=== PATIENT | female | born 1960 | race Caucasian/White ===

== ENCOUNTER 2020-11-03 09:12 | Outpatient (CLI) | payer OTHER, SELFPAY ==
--- NOTE | ~2020-11-03 | MM_ITS ---
EXAMINATION: MM screening corin BI w liza HISTORY: Screening TECHNIQUE: Craniocaudal and mediolateral oblique 3-D tomosynthesis images were obtained and synthetic 2-D images were generated. CAD analysis was submitted and interpreted. COMPARISON: Comparison to multiple prior studies sequentially, with oldest reviewed study dated 06/30. BREAST PARENCHYMAL COMPOSITION: There are scattered areas of fibroglandular density. FINDINGS: There is no evidence of suspicious mass, calcification, or architectural distortion to sugg est malignancy in either breast. There has been no suspicious interval change. IMPRESSION: 1. No mammographic evidence of malignancy. 2. Recommend routine screening mammography in one year. BI-RADS Category 1: Negative Reviewed, dictated and finalized at location A.
== END 2020-11-03 09:13 | disposition home or self-care (01) ==
LOC: ANHIMG 09:15
PROVIDERS: PCP Family Medicine; Visit Provider Family Medicine
DX: Z12.31 Encounter for screening mammogram for malignant neoplasm of breast (principal)
CPT/HCPCS: 77063; 77067

== ENCOUNTER → 2021-08-29 15:55 | Outpatient (CLI) | payer OTHER, SELFPAY ==
--- NOTE | ~2021-08-29 | XR_ITS ---
XR lumbar spine 6V w bending DATE: 08/29/2021 16:49 INDICATION: Back pain TECHNIQUE: AP, lateral, bilateral oblique views. Coned lateral lumbosacral view. Flexion and extensio n lateral standing views. COMPARISON: None FINDINGS: There is severe degenerative disc disease with severe loss of disc space, eburnation, spurr ing, vacuum phenomenon at and minimal retrolisthesis at L4-5, stable in flexion, extension and neutra l. There is moderate degenerative disc disease at L1-2, L2-3 and L5-S1, mild degenerative disc disease a t L3-4. No fracture, bone destruction or spondylolisthesis. The lumbar pedicles are intact. There is mild compensatory dextroscoliosis of the lumbar spine. The sacroiliac joints are unremarkable. Surgical clips, right upper quadrant, likely due to cholecystectomy. IMPRESSION: Severe degenerative disc disease and minimal retrolisthesis at L4-5 Mild to moderate degenerative disc disease at the remaining lumbar and lumbosacral interspaces Reviewed, dictated and finalized at location A. IMPRESSION: Severe degenerative disc disease and minimal retrolisthesis at L4-5 Mild to moderate degenerative disc disease at the remaining lumbar and lumbosac ral interspaces
--- NOTE | ~2021-08-29 | XR_ITS ---
XR thoracic spine 3V DATE: 08/29/2021 16:49 INDICATION: Back pain TECHNIQUE: AP, lateral, swimmer standing views COMPARISON: None FINDINGS: There is degenerative disc disease at C5-6 and C6-7. There is mild levoscoliosis of the mid and lower thoracic spine. There is degenerative spurring, most prominent in the mid and lower thoracic area. No fracture or bone destruction is evident. The thoracic pedicles are intact. No paraspinal soft tiss ue thickening. IMPRESSION: Degenerative spurring and mild scoliosis Reviewed, dictated and finalized at location A.
== END ==
PROVIDERS: PCP Family Medicine; Visit Provider Family Medicine
DX: M47.9 Spondylosis, unspecified (principal); M54.15 Radiculopathy, thoracolumbar region; M62.830 Muscle spasm of back; M51.36 Other intervertebral disc degeneration, lumbar region; M41.9 Scoliosis, unspecified
CPT/HCPCS: 72072; 72114

== ENCOUNTER → 2021-09-25 12:56 | Outpatient (CLI) | payer OTHER, SELFPAY ==
--- NOTE | ~2021-09-25 | MR_ITS ---
EXAMINATION: MR thoracic spine wo con DATE: 09/25/2021 13:32 INDICATION: Other intervertebral disc degeneration, thoracic spine. Mid to low back pain. TECHNIQUE: Magnetic resonance imaging (MRI) of the thoracic spine was performed without intravenous c ontrast. Sagittal localizer T1-weighted FSE of the cervical spine was obtained. Thoracic spine sequen lyn included sagittal T2-weighted FSE, sagittal T1-weighted FSE, sagittal T2-weighted FS FSE, and axi al T2-weighted FSE. COMPARISON: Abdomen radiographs 08/29/2021 FINDINGS: There is 6 degrees levocurvature of thoracic spine. There is kyphosis of thoracic spine. Th ere is mild chronic anterior wedging of T4-T11 vertebral bodies. There is moderately decreased disc h eight at T10-T11 and T11-T12. There is mildly decreased disc height at multiple levels. There is mult ilevel facet joint osteoarthritis, moderate to severe in upper thoracic spine. At T2-T3, the disc is bulging with mild central canal stenosis and ventral indentation of the spinal cord. At T7-T8, there is a right central extrusion with mild central canal stenosis and ventral indentation of the spinal c ord. At T9-T10, the disc is bulging with mild central canal stenosis. At T10-T11, the disc is bulging with superimposed right central extrusion with mild central canal stenosis and ventral indentation o f the spinal cord. On the right, there is mild neural foraminal stenosis from T1-T2 through T5-T6 and at T10-T11. On the left, there is mild foraminal stenosis from T1-T2 through T3-T4. The spinal cord signal intensity is normal. The conus medullaris is at L1. IMPRESSION: 1. Moderate thoracic spondylosis. 2. Thoracic kyphosis. Reviewed, dictated and finalized at location A.
--- NOTE | ~2021-09-25 | MR_ITS ---
EXAMINATION: MR lumbar spine wo con DATE: 09/25/2021 13:39 INDICATION: Mid to low back pain. TECHNIQUE: Magnetic resonance imaging (MRI) of the lumbar spine was performed without intravenous con trast. Sequences included sagittal T2-weighted FSE, sagittal T2-weighted FS FSE, sagittal T1-weighted FSE, and axial T2-weighted FSE. COMPARISON: Lumbar spine radiographs 08/29/2021 FINDINGS: There is 6 degrees dextrocurvature of lumbar spine. There is 3 mm retrolisthesis of L4 on L 5. Vertebral body heights are normal. There is mildly decreased disc height at L2-L3, severely decrea sed disc height at L4-L5, and mildly decreased disc height at L5-S1. The distal spinal cord signal in tensity is normal. The conus medullaris is at T12-L1. The following disc levels are specifically disc ussed: L1-L2: There is a right central protrusion. There is no facet joint osteoarthritis. There is no neura l foraminal stenosis. There is mild central canal stenosis. L2-L3: The disc is bulging. There is mild bilateral facet joint osteoarthritis. There is mild bilater al neural foraminal stenosis. There is mild central canal stenosis. L3-L4: The disc is bulging. There is severe bilateral facet joint osteoarthritis. There is mild bilat eral neural foraminal stenosis. There is mild central canal stenosis. L4-L5: The disc is bulging and has an annular fissure There is moderate bilateral facet joint osteoar thritis. There is moderate bilateral neural foraminal stenosis. There is mild central canal stenosis. L5-S1: There is a right foraminal and subarticular zone protrusion with annular fissure. There is sev ere right and moderate left facet joint osteoarthritis. There is moderate right neural foraminal sten osis. There is mild central canal stenosis. IMPRESSION: 1. Severe lumbar spondylosis. Reviewed, dictated and finalized at location A.
== END ==
PROVIDERS: PCP Family Medicine; Visit Provider Nurse Practitioner Family
DX: M51.34 Other intervertebral disc degeneration, thoracic region (principal); M51.36 Other intervertebral disc degeneration, lumbar region; M47.894 Other spondylosis, thoracic region; M47.896 Other spondylosis, lumbar region
CPT/HCPCS: 72146; 72148

== ENCOUNTER → 2022-11-01 08:10 | Outpatient (CLI) | payer OTHER, SELFPAY ==
--- NOTE | ~2022-11-01 | XR_ITS ---
AP and lateral views of the bilateral hips Clinical history: Pain Findings: No acute fracture or dislocation is seen. Osseous alignment is anatomic. Bilateral hip and SI joint spaces are preserved. Soft tissues are unremarkable. Impression: No significant abnormality is seen. Reviewed, dictated and finalized at location . Impression: No significant abnormality is seen.
== END ==
PROVIDERS: PCP Family Medicine; Visit Provider Anesthesiology Pain Medicine
DX: M16.9 Osteoarthritis of hip, unspecified (principal)
CPT/HCPCS: 73521

== ENCOUNTER → 2023-03-04 07:54 | Outpatient (CLI) | payer OTHER, SELFPAY ==
--- NOTE | ~2023-03-04 | MR_ITS ---
EXAMINATION: MR lumbar spine wo con DATE: 03/04/2023 08:20 INDICATION: Low back pain TECHNIQUE: Magnetic resonance imaging (MRI) of the lumbar spine was performed without intravenous con trast. Sequences included sagittal T2-weighted FSE, sagittal T2-weighted FS FSE, sagittal T1-weighted FSE, and axial T2-weighted FSE. COMPARISON: None FINDINGS: 2 mm retrolisthesis L4 on L5. Vertebral body heights are normal. Severe disc height loss with associa izaiah fibrofatty degenerative endplate changes at L4-L5. Mild disc height loss at L2-L3 and L5-S1. Mini mal disc height loss at L3-L4. Marrow signal is otherwise unremarkable. The conus medullaris terminat es at L1. There is normal signal in the caudal spinal cord. Paravertebral soft tissues are unremarkab le. The following disc levels are specifically discussed: T11-T12: Annular fissure and right paracentral disc extrusion which flattens the right ventral surfac e of the cord. There is mild right facet osteoarthritis. There is mild right neural foraminal stenosi s. There is mild central canal stenosis. T12-L1: The disc does not extend beyond the endplate margin. There is mild bilateral facet joint oste oarthritis. There is no neural foraminal stenosis. There is no central canal stenosis. L1-L2: Disc is mildly bulging with small right paracentral disc protrusion. There is mild bilateral f acet joint osteoarthritis. There is no neural foraminal stenosis. There is mild central canal stenosi s. L2-L3: Disc is bulging with annular fissure and increasing small to moderate-sized central to left pa racentral disc extrusion with disc material extending a few millimeters cephalad and caudal to the le gus of the endplates. There is mild left and moderate right facet joint osteoarthritis. There is mild bilateral neural foraminal stenosis. There is mild central canal stenosis. L3-L4: Disc is bulging. There is severe bilateral facet joint osteoarthritis. There is mild bilateral neural foraminal stenosis. There is mild central canal stenosis. L4-L5: Annular fissure and broad-based disc extrusion extending from foraminal zone to foraminal zone disc material extending 3 mm beyond the allred of the endplate margins. There is moderate bilateral f acet joint osteoarthritis. There is moderate bilateral neural foraminal stenosis. There is mild centr al canal stenosis. L5-S1: Disc is minimally bulging with annular fissure and small right paracentral disc protrusion. Th ere is severe right and moderate left facet joint osteoarthritis. There is moderate right neural fora librado stenosis. There is mild central canal stenosis. IMPRESSION: 1. No significant interval change in severe lower lumbar predominant spondylosis. Reviewed, dictated and finalized at location A. IMPRESSION: 1. No significant interval change in severe lower lumbar predominant spondylosi s.
== END ==
PROVIDERS: PCP Family Medicine; Visit Provider Neurological Surgery
DX: M54.50 Low back pain, unspecified (principal)
CPT/HCPCS: 72148

== ENCOUNTER 2023-05-03 08:44 | Outpatient (CLI) | payer OTHER, SELFPAY ==
--- NOTE | 2023-05-03 08:47 | EST_ITS ---
Patient Info Name: Randi Bains Age: 62 years : 1960 Gender: Female Ht: 67 in Wt: 170 lbs BSA: 1.92 m2 HR: 70 bpm BP: 143 / 93 mmHg Heart Rhythm: Sinus Rhythm Exam Date: 05/03/2023 9:00 AM Exam Location: [facility] Patient Status: Outpatient Admit Date: 05/03/2023 Staff Ordering Physician: Joann Hanna Attending Provider: Joann Hanna Exercise Technologist: Radha Christensen CT Exercise Physician: Gene Ballesteros DO Exam Type: CA stress test treadmill Study Info Indications R06.02 - Shortness of breath A treadmill exercise stress test was performed. Summary 1. 1. Negative Sunny exercise stress test for ischemic ST changes by ECG criteria. 2. 2. Good functional capacity, achieving 8.9 METs of workload. 3. 3. Baseline hypertension with hypertensive response to exercise. 4. 4. Appropriate HR response to exercise. 5. 5. Appropriate HR recovery at 1 minute post exercise. 6. 6. No imaging with stress testing. 7. 7. Patient informed of the above results. Protocol: Sunny Stress ECG Details Stage: REST Duration (min): 3 min : 44 sec Speed (mph): 0.0 Grade (%): 0 HR (bpm): 71 SBP (mmHg): 143 DBP (mmHg): 99 METS: --- Stage: REST Duration (min): 6 min : 26 sec Speed (mph): 0.0 Grade (%): 0 HR (bpm): 72 SBP (mmHg): 143 DBP (mmHg): 99 METS: --- Stage: STAGE 1 Duration (min): 1 min : 0 sec Speed (mph): 1.7 Grade (%): 10 HR (bpm): 82 SBP (mmHg): 143 DBP (mmHg): 99 METS: --- Stage: STAGE 1 Duration (min): 2 min : 0 sec Speed (mph): 1.7 Grade (%): 10 HR (bpm): 98 SBP (mmHg): 143 DBP (mmHg): 99 METS: --- Stage: STAGE 1 Duration (min): 3 min : 0 sec Speed (mph): 1.7 Grade (%): 10 HR (bpm): 104 SBP (mmHg): 193 DBP (mmHg): 104 METS: --- Stage: STAGE 2 Duration (min): 1 min : 0 sec Speed (mph): 2.5 Grade (%): 12 HR (bpm): 104 SBP (mmHg): 202 DBP (mmHg): 109 METS: --- Stage: STAGE 2 Duration (min): 2 min : 0 sec Speed (mph): 2.5 Grade (%): 12 HR (bpm): 110 SBP (mmHg): 213 DBP (mmHg): 107 METS: --- Stage: STAGE 2 Duration (min): 3 min : 0 sec Speed (mph): 2.5 Grade (%): 12 HR (bpm): 116 SBP (mmHg): 213 DBP (mmHg): 107 METS: --- Stage: STAGE 3 Duration (min): 1 min : 0 sec Speed (mph): 3.4 Grade (%): 14 HR (bpm): 120 SBP (mmHg): 213 DBP (mmHg): 107 METS: --- Stage: STAGE 3 Duration (min): 1 min : 2 sec Speed (mph): 3.4 Grade (%): 14 HR (bpm): 120 SBP (mmHg): 213 DBP (mmHg): 107 METS: --- Stage: RECOVERY Duration (min): 0 min : 57 sec Speed (mph): 0.0 Grade (%): 0 HR (bpm): 125 SBP (mmHg): 213 DBP (mmHg): 107 METS: --- Stage: RECOVERY Duration (min): 1 min : 57 sec Speed (mph): 0.0 Grade (%): 0 HR (bpm): 110 SBP (mmHg): 237 DBP (mmHg): 104 METS: --- Stage: RECOVERY Duration (min): 2 min : 58 sec Speed (mph): 0.
== END 2023-05-03 08:45 | disposition home or self-care (01) ==
PROVIDERS: PCP Family Medicine; Visit Provider Nurse Practitioner Family
DX: R06.02 Shortness of breath (principal)
CPT/HCPCS: 93017

== ENCOUNTER 2023-08-05 15:20 | Outpatient (CLI) | payer OTHER, SELFPAY ==
--- NOTE | ~2023-08-05 | MM_ITS ---
EXAMINATION: MM screening corin BI w liza HISTORY: Screening mammogram TECHNIQUE: Craniocaudal and mediolateral oblique 3-D tomosynthesis images were obtained and synthetic 2-D images were generated. CAD analysis was submitted and interpreted. COMPARISON: 11/03/2020, June 15, 2019 bilateral screening mammogram examinations BREAST PARENCHYMAL COMPOSITION: There are scattered areas of fibroglandular density. FINDINGS: There is no evidence of suspicious mass, calcification, or architectural distortion to sugg est malignancy in either breast. There has been no suspicious interval change. IMPRESSION: 1. No mammographic evidence of malignancy. 2. Recommend routine screening mammography in one year. BI-RADS Category 1: Negative Reviewed, dictated and finalized at location A. CITOR REPAIRER
== END 2023-08-05 15:21 | disposition home or self-care (01) ==
LOC: ANHIMG 15:30
PROVIDERS: PCP Family Medicine; Visit Provider Family Medicine
DX: Z12.31 Encounter for screening mammogram for malignant neoplasm of breast (principal)
CPT/HCPCS: 77063; 77067

== ENCOUNTER 2023-10-02 13:38 | Outpatient (CLI) | payer OTHER, SELFPAY ==
--- NOTE | ~2023-10-02 | US_ITS ---
EXAMINATION: US carotid duplex BI DATE: 10/02/2023 14:54 INDICATION: Right carotid bruit TECHNIQUE: Grayscale, color Doppler, and pulsed Doppler images of the cervical carotid arteries were obtained. The degree of vessel stenosis is placed in one of the following categories: normal, <50%, 5 0-69%, >=70% but less than near-occlusion, near-occlusion, or total occlusion. Note that percent sten osis relative to normal distal artery lumen diameter is indirectly measured from velocity measurement s as described by Jorge, et al. Radiology 2003; 229:340-346. Notes: Normal: Peak systolic velocity <125 centimeters/sec and no plaque <50%. Peak systolic velocity <125 ( EDV <40; ICA/CCA PSV ratio <2.0; used these factors only a tandem lesions or low cardiac output or co ntralateral disease) 50-69 %: PSV 125-230 (EDV 40-100; ratio 2-4) >= 70% but less than near occlusion: PSV greater than 230 (EDV > 100; ratio> 4.0) Near Occlusion: PSV that is variable; markedly narrowed lumen Occlusion: Absent flow on color/spectral Doppler and no lumen on carter scale. COMPARISON: None. FINDINGS: RIGHT: The right common carotid artery (CCA) peak systolic velocity (PSV) is 91 cm/s. The right internal car otid artery (ICA) PSV is 113 cm/s. The right ICA end-diastolic velocity (EDV) is 56 cm/s. The right I CA/CCA PSV ratio is 1.8. The external carotid artery (ECA) PSV is 79 cm/s. There is antegrade flow in the right vertebral artery. LEFT: The left CCA PSV is 99 cm/s. The left ICA PSV is 131 cm/s. The left ICA EDV is 61 cm/s. The left ICA/ CCA PSV ratio is 1.8. The ECA PSV is 84 cm/s. There is antegrade flow in the left vertebral artery. IMPRESSION: 1. Less than 50% stenosis in the right internal carotid artery by sonographic criteria. 2. 50-69% stenosis in the left internal carotid artery by sonographic criteria. Reviewed, dictated and finalized at location B. IMPRESSION: 1. Less than 50% stenosis in the right internal carotid artery by sonographic c riteria. 2. 50-69% stenosis in the left internal carotid artery by sonographic criteria.
== END 2023-10-02 13:39 | disposition home or self-care (01) ==
LOC: ANHIMG 13:39
PROVIDERS: PCP Family Medicine; Visit Provider Family Medicine
DX: R22.1 Localized swelling, mass and lump, neck (principal); I65.23 Occlusion and stenosis of bilateral carotid arteries
CPT/HCPCS: 93880

== ENCOUNTER 2024-07-13 13:06 | Outpatient (CLI) | payer OTHER, SELFPAY ==
--- NOTE | ~2024-07-13 | CT_ITS ---
EXAMINATION:CT lung screening DATE: 07/13/2024 13:40 INDICATION: Personal history of nicotine dependence. Current smoker with 20 pack year history. TECHNIQUE: Computed tomography (CT) of the chest was performed without intravenous contrast. Automate d exposure control and iterative reconstruction technique were employed. The dose-length product (DLP ) was 114.84 mGy-cm. COMPARISON: None. FINDINGS: The lungs demonstrate mild atelectasis. No pleural effusion. A calcified left lung nodule a nd calcified left hilar lymph nodes are consistent with old granulomatous disease. No pleural effusio n. The heart size is normal. No pericardial effusion. There is severe upper thoracic spondylosis. IMPRESSION: 1. Lung-RADS category 1: Negative. Continue annual screening with noncontrast low-dose chest CT in 12 months. Reviewed, dictated and finalized at location A. ING AND COOLING TECHNICIAN IMPRESSION: 1. Lung-RADS category 1: Negative. Continue annual screening with noncontrast l ow-dose chest CT in 12 months.
== END 2024-07-13 13:07 | disposition home or self-care (01) ==
PROVIDERS: PCP Family Medicine; Visit Provider Family Medicine
DX: Z12.2 Encounter for screening for malignant neoplasm of respiratory organs (principal); Z87.891 Personal history of nicotine dependence
CPT/HCPCS: 71271

== ENCOUNTER 2024-10-04 17:11 | Emergency (ER) | payer OTHER, SELFPAY ==
--- OUTSIDE RECORDS SUMMARY | 2024-10-04 17:13 | XMS_ITS | Clinical Summary ---
Author Organization [facility] Address [address] [place] [id number] Care Team Providers Care Drill Press Tender Name Role Phone Rogelio Dugan MD Primary Care Provider [phone] Allergies Active Allergy Reactions Criticality Noted Date Comments Mg Inhibitors Cough,Other (see comment) 09/05/2018 cough Other reaction(s): Other (see Comments) cough Codeine Nausea Only,Vomiting 09/05/2018 Dander Swelling 07/03/2023 Dust Mite Extract Cough 07/03/2023 Latex Anaphylaxis,Swelling High 09/05/2018 States she had a barium swallow study and the Dr used a latex glove and she coded Molds & Smuts Cough 07/03/2023 Ondansetron Other (see comment) 09/05/2018 headache Other reaction(s): Other (see Comments) headache Poison Carmella Extract Rash,Swelling Low 07/03/2023 Pollen Extract Cough 07/03/2023 Sulfa Antibiotics Vomiting 07/03/2023 Medications Collagen-Vitami n C-Biotin (COLLAGEN 1500/C) 500-50-0.8 MG Cap 1735 mg Active albuterol sulfate HFA 108 (90 Base) MCG/ACT inhalerIndicati ons:sob INHALE 2 PUFFS EVERY 6 HOURS NEEDED FOR WHEEZE OR FOR SHORTNESS OF BREATH 3 Active citalopram (CELEXA) 20 MG tabletIndicatio ns:depression Take by mouth daily. Indications: depression Active cyclobenzaprine (FLEXERIL) 10 MG tablet 1 TID (10 MG) Active hydroCHLOROthia zide (MICROZIDE) 12.5 MG tabletIndicatio ns:diuretic Take 2 tablets (25 mg total) by mouth every morning. Indications: diuretic 4 Active omeprazole (PRILOSEC) 20 MG capsuleIndicati ons:gerd Take 1 capsule (20 mg total) by mouth daily. Indications: gerd 3 Active rosuvastatin (CRESTOR) 20 MG tabletIndicatio ns:hld Take by mouth daily. Indications: hld Active valsartan (DIOVAN) 80 MG tabletIndicatio ns:htn Take by mouth daily. Indications: htn Active glucosamine-cho ndroitin 500-400 MG Cap Take 1 capsule by mouth daily. Active Turmeric (QC TUMERIC COMPLEX OR) With magnesium Activ e Multiple Vitamin (MULTIVITAMIN ADULT OR) Active Cody, Zingiber officinalis, (CODY OR) Active vitamin B-6 (VITAMIN B-6) 50 MG tablet Take 1 tablet (50 mg total) by mouth daily. Active THEANINE OR Take 1 tablet by mouth daily. Sergio L-Theanine Active probiotic (FLORAJEN3) Cap capsule Take 1 capsule by mouth 3 (three) times daily with meals. Active Coenzyme Q10 (COQ10 OR) Active multiple vitamins-minera ls (OCUVITE-LUTEIN ) Cap Take 1 capsule by mouth daily. Active traZODone (DESYREL) 50 MG tabletIndicatio ns:sleep Take 1 tablet (50 mg total) by mouth nightly at bedtime. Indications: sleep 4 Active fluticasone propionate (FLONASE) 50 MCG/ACT nasal spray Active meloxicam (MOBIC) 15 MG tablet 4 Active Active Problems Problem Noted Date Diagnosed Date Status post total replacement of right hip 09/02 Primary osteoarthritis of right hip 08/01/2023 Family History Medical History Relation Comments Depression Father Arthritis Mother Hypertension Mother Relation Status Comments Father Mother Social History Tobacco Use Types Packs/Day Years Used Date Smoking Tobacco: Former Cigarettes 0.3 15 0 07/03/2008 - 07/03/2023 Passive Smoke Exposure: Never Smokeless Tobacco: Never Tobacco Cessation:Counseling Given: No Comments:4-5 per day Alcohol Use Standard Drinks/Week Comments Not Currently 0 (1 standard drink = 0.6 oz pur e alcohol) OASIS D0700: Social Isolation Answer Da te Recorded Frequency of experiencing loneliness or isolatio n Never 09/11/2023 OASIS A1250: Transportation Answer Date Recorded Lack of Transportation (Medical) No 09/11/2023 Lack of Transportation (Non-Medical) No 09/11/2023 Patient Unable or Declines to Respond No 09/11/2023 OASIS B1300: Health Literacy Answer Uli e Recorded Frequency of needing help to read materials from doctor or pharmacy Never 09/11/2023 PHQ-2 Answer Date Recorded Patient Health Questionnaire-2 Score 0 09/16/2023 Comments No Sex and Gender Information Value Date Recorded Sex Assigned at Not on file 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 Gender Identity Not on file Sexual Orientation Not on file Last Filed Vital Signs Vital Sign Reading Time Taken Comments Blood Pressure 125/76 10/14/2023 2:19 PM CDT Pulse 73 10/14/2023 2:19 PM CDT Temperature 36.1 C (97 F) 10/14/2023 2:19 PM CDT Respiratory Rate 18 09/10/2023 12:40 PM CDT Oxygen Saturation 97% 10/14/2023 2:19 PM CDT Inhaled Oxygen Concentration - - Weight 83.5 kg (184 lb) 10/14/2023 2:19 PM CDT Height 172.7 cm (5' 8 ) 09/16/2023 10:20 AM CDT Body Mass Index 27.98 09/16/2023 10:20 AM CDT Plan of Treatment Health Maintenance Due Date Last Done Comments Colorectal Cancer Screening Colonoscopy (10 Years) 1960 Annual Physical 11/20/1962 Hepatitis C 11/20/1977 DTaP, Tdap and Td Vaccines (1 - Tdap) 11/20/1978 Mammogram Screening 1999 Pneumococcal Vaccine: 50+ Years (1 of 1 - PCV) 11/20/2009 Zoster Vaccines (1 of 2) 11/20/2009 COVID-19 Vaccine ( - season) 2024 05/21/2023, 11/08/2022, 12/15/2021, Additional history exists PHQ-2 (Physician Belkofski) 06/03/2024 09/16/2023 RSV Immunization or 60+ Years Completed 05/21/2023 Meningococcal B Vaccine Aged Out No l onger eligible based on patient's age to complete this topic Meningococcal Vaccine Aged Out No yanick roosevelt eligible based on patient's age to complete this topic RSV Immunizations Under 20 Months Aged Out No longer eligible based on patient's age to complete this topic Goals Goal Patient Goal Type Associated Problems Recent Progress Patient-Stated? Author Family - family caregiver with be involved in care transitions and discharge planning Lifestyle No Juan Hope, RN Medical Devices Implanted Type Area Seat Joiner Device Identifier Shelf Expiration Date Model / Serial / Lot Shell Acetabular Depuy 56mm - [id number] Implanted:Qty : 1 on 09/03/2023 by Davion Chin MD at [facility] Hip Components Right: Hip DEPUY [id number] 12/31/2032 [id number] / / [id number] Liner Depuy Acetabular Altrx Neut 36x56 - [id number] Implanted:Qty : 1 on 09/03/2023 by Davion Chin MD at [facility] Hip Components Right: Hip DEPUY [id number] 05/02/2028 [id number] / / [id number] Stem Femoral Collar Actis Duofix 5 Standard Offset Hip Sterile - [id number] Implanted:Qty : 1 on 09/03/2023 by Davion Chin MD at [facility] Hip Components Right: Hip DEPUY [id number] 07/03/2033 [id number] / / [id number] Head Depuy Femoral Delta 36mm +5 - [id number] Implanted:Qty : 1 on 09/03/2023 by Davion Chin MD at [facility] Hip Components Right: Hip DEPUY [id number] 09/30/2026 [id number] / / [id number] Screw Depuy Cancellous Bone 6.5mm X 25mm - [id number] Implanted:Qty : 1 on 09/03/2023 by Davion Chin MD at [facility] Screw Right: Hip DEPUY [id number] 03/02/2033 [id number] / / [id number] Screw Katy Depuy 6.5 X 20mm - [id number] Implanted:Qty : 1 on 09/03/2023 by Davion Chin MD at [facility] Screw Right: Hip DEPUY [id number] 03/02/2033 [id number] / / [id number] Insurance Advance Directives * Full Code (Latest Code Status on File) Date Activated Date Inactivated Comments 10/02/2023 10:27 AM * Full Code Date Activated Date Inactivated Comments 09/03/2023 11:31 AM 09/04/2023 2:12 PM Care Teams Drill Press Tender Relationship Specialty Start Date End Date Rogelio Dugan MD [address] [place] [address] PCP - General FAMILY PRACTICE 06/04/23
--- OUTSIDE RECORDS SUMMARY | 2024-10-04 17:13 | XMS_ITS | Clinical Summary ---
Author Organization [facility] Address [address] [facility], [facility] [address] [place] [address] Phone Care Team Providers Care Client Technologies Analyst Name Role Phone Mark Diehl MD Primary Care Provider Allergies Active Allergy Reactions Criticality Noted Date Comments Codeine Nausea 09/05/2018 Latex Unknown 09/05/2018 Lisinopril Other (see Comments) 09/05/2018 cough Ondansetron Hcl Other (see Comments) 09/05/2018 headache Medications VENTOLIN HFA 108 (90 Base) MCG/ACT Aerosol Solution TAKE 2 PUFFS BY MOUTH EVERY 4 HOURS 11 05/19/2018 Active citalopram (CELEXA) 20 MG Tablet Take 20 mg by mouth daily. 5 08/13/2018 Active hydroCHLOROthia zide (MICROZIDE) 12.5 MG Capsule Take 1 Cap by mouth daily. 9 08/04/2018 Active hydrOXYzine (VISTARIL) 25 MG Capsule TAKE ONE CAPSULE BY MOUTH 4 TIMES A DAY NEEDED 5 07/01/2018 Active losartan (COZAAR) 100 MG Tablet Take 100 mg by mouth daily. 0 08/01/2018 Active OMEPRAZOLE PO Take 20 mg by mouth daily. 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) 9 Tobacco abuse 10/08/2018 Anxiety 10/08/2018 Family History Medical History Relation Name Comments Alcohol Abuse Brother Alcohol Abuse Mother Heart Disease Mother High Cholesterol Mother Hypertension Mother Relation Name Status Comments Brother Mother Social History Tobacco Use Types Packs/Day Years Used Date Smoking Tobacco: Every Day Cigarettes 0.5 20 Smokeless Tobacco: Never Tobacco Cessation:Ready to Q uit: Yes Alcohol Use Standard Drinks/Week Comments Never 0 (1 standard drink = 0.6 oz pur e alcohol) AUDIT-C Answer Date Recorded Frequency of Alcohol Consumption Never 09/05/2018 Average Number of Drinks Not on file 019 Frequency of Binge Drinking Not on file 10/2018 Comments Unknown Sex and Gender Information Value Date Recorded Sex Assigned at Not on file Legal Sex Female 2:32 PM CDT Gender Identity Not on file Sexual Orientation Not on file Last Filed Vital Signs Vital Sign Reading Time Taken Comments Blood Pressure 140/80 10/08/2018 10:54 AM CDT Pulse 76 10/08/2018 10:54 AM CDT Temperature 36.1 C (97 F) 10/08/2018 10:54 AM CDT Respiratory Rate 18 10/08/2018 10:54 AM CDT Oxygen Saturation 94% 10/08/2018 10:54 AM CDT Inhaled Oxygen Concentration - - Weight 87.1 kg (192 lb) 10/08/2018 10:54 AM CDT Height 172.7 cm (5' 8 ) 10/08/2018 10:54 AM CDT Body Mass Index 29.19 10/08/2018 10:54 AM CDT Plan of Treatment Health Maintenance Due Date Last Done Comments Hepatitis C Virus (HCV) Screening 1960 TdaP Immunization 1960 Colonoscopy 11/20/2004 Colorectal Cancer Screening 11/20/2004 Cologuard 11/20/2009 Immunochemical Fecal Occult Blood 11/20/2009 Mammogram 11/20/2009 Pneumococcal Immunization (5 0+ years) (1 of 1 - PCV) 11/20/2009 Zoster Immunization (1 of 2) 11/20/2009 Influenza Immunization (#1) 2024 SARS-COV-2 Immunization ( season) 2024 04/21/2021, 09/23/2020, 09/02/2020 Respiratory Syncytial Virus (RSV) Immunization (Adult) (1 - 1-dose 75+ series) 11/20/2034 Hepatitis B Immunization Aged Out No longer eligible based on patient's age to complete this topic Meningococcal Immunization (ACWY) Aged Out No longer eligible b ased on patient's age to complete this topic Pneumococcal Immunization Combined Aged Out No longer eligible b ased on patient's age to complete this topic Rotavirus Immunization Aged Out No lo nger eligible based on patient's age to complete this topic Insurance MEDICAID [place] Care Teams Client Technologies Analyst Relationship Specialty Start Date End Date Mark Diehl MD [address] [facility] [address] [address] [place] [address] PCP - General Family Medicine 02/10/18
[2024-10-04 17:17] VITALS: BP 164/86; PULSE 75; RESP 20; TEMP 36.8; O2SAT 98
--- NOTE | 2024-10-04 17:23 | ED.NAVMDI ---
HPI - Nausea/Vomiting/Diarrhea General Chief complaint: Nausea/Vomiting/Diarrhea Stated complaint: abdominal pain Time Seen by Provider: 10/04/24 17:22 Source: patient Mode of arrival: ambulatory Limitations: no limitations History of Present Illness HPI Narrative: FULL 63 YEARS OLD WHITE FEMALE CAME TO THE ED FROM HOME BY PRIVATE CAR COMPLAINING OF NAUSEA, DIARRHEA AND VOMITING FOR THE LAST AND WEEK. PATIENT REPORTS VOMITING MAINLY IN THE MORNING ON AVERAGE 1-2 TIMES A DAY, DIARRHEA MAINLY IN THE MORNING ON AVERAGE 2 TO 4 TIMES A DAY. ASSOCIATED WITH LIGHTHEADEDNESS, HEADACHE, LOW TIRED AND WEAKNESS. PATIENT DID NOT SEE ANY MEDICAL PROVIDER OVER THE LAST AND WEEK BECAUSE SHE KNEW THAT BUT SHE HAVE IS VIRAL INFECTION. PATIENT LIVES WITH FAMILY, WHO ARE ASYMPTOMATIC. CURRENTLY SHE DENIES ANY FEVER OR CHILLS OR ABDOMINAL PAIN. HISTORY OF HYPERTENSION HYPERLIPIDEMIA DEPRESSION CHOLECYSTECTOMY APPENDECTOMY HYSTERECTOMY. PATIENT SMOKES CIGARETTES, DOES NOT DRINK ALCOHOL, USES MARIJUANA ALMOST DAILY. Related Data Home Medications ?Medication ?Instructions ?Recorded ?Confirmed ?Last Taken ?Type aspirin 81 mg tablet,delayed 81 mg PO DAILY 02/21/24 06/18/24 Unknown History release (Adult Aspirin Regimen) bergamot extract 500 mg capsule mg PO 02/21/24 06/18/24 Unknown History (Pickaway Bergamot) biotin 10,000 mcg-keratin 100 mg tablet PO 02/21/24 06/18/24 Unknown History tablet (Biotin Plus Keratin) collagen-hyaluronic cap PO 02/21/24 06/18/24 Unknown History icib-ijbfpcgntg-mxsl extract 515 mg capsule eliezer (Zingiber officinalis) 250 250 mg PO DAILY 02/21/24 06/18/24 Unknown History mg capsule (eliezer extract) lactobacillus combination no.9 4 4,000 mmu cells PO DAILY 02/21/24 06/18/24 Unknown History billion cell capsule (Adult 50 Plus Probiotic) lutein 20 mg capsule 20 mg PO DAILY 02/21/24 06/18/24 Unknown History multivitamin 1 tablet PO DAILY 02/21/24 06/18/24 Unknown History pyridoxine (vitamin B6) 10 mg 10 mg PO DAILY 02/21/24 06/18/24 Unknown History tablet turmeric 400 mg capsule mg PO 02/21/24 06/18/24 Unknown History Allergies Allergy/AdvReac Type Severity Reaction Status Date / Time latex Allergy Severe Anaphylactic Verified 10/04/24 17:13 Shock amlodipine Allergy Intermediate Swelling Verified 10/04/24 17:13 codeine AdvReac Intermediate Nausea and Verified 10/04/24 17:13 Vomiting Sulfa (Sulfonamide AdvReac Intermediate Nausea and Verified 10/04/24 17:13 Antibiotics) Vomiting ELENA Inhibitors AdvReac Mild Cough Verified 10/04/24 17:13 ondansetron AdvReac Mild Headache Verified 10/04/24 17:13 lisinopril AdvReac Cough Verified 10/04/24 17:13 Review of Systems Review of Systems: All systems reviewed & are unremarkable except as noted in HPI and below PMFSH Past Medical History Medical History Osteoarthritis of right hip Pulsatile neck mass BMI 29.0-29.9,adult Hip pain BMI 26.0-26.9,adult Overweight with body mass index (BMI) of 28 to 28.9 in adult Mixed hyperlipidemia Thoracic spondylosis with cord compression Lumbar spondylosis GERD without esophagitis Screening for lipid disorders Skin lesion Radiculopathy Back muscle spasm Endometriosis Staph aureus infection Surgical History Surgical History History of hip surgery History of hysterectomy H/O bilateral salpingo-oophorectomy History of appendectomy History of cholecystectomy Family History Family History Mother Family history of diabetes mellitus in first degree relative Diabetes mellitus Heart disease Father Emphysema lung Sibling No problems noted. Social History Social History Smoking packs per day: 0.9 Smoking cigarettes per day: 18.0 Years smoked: 40 Smoking pack-years: 36.00 Smoking status: Former smoker Tobacco type: cigarettes Second hand tobacco smoke exposure: Yes Smoking end date: 03/13/22 Alcohol intake: current Drinks per week: 0 Alcohol use details: once a month Substance use: current Substance use type: marijuana Do You Feel Safe in your Home?: Yes Lack of Transportation: No Lack of Food: Never True Current Housing: I Have Housing Concerned About Future Housing: No Difficulty Paying Gas/Electric Bills: No Difficulty Paying for Meds: No Currently Unemployed: No Education: Associate Degree Difficulty w/ Childcare or Family Care: No Living arrangements: with family Additional living arrangements comments: 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 MUSCULOSKELETAL: NORMAL RANGE OF MOTION, NONTENDER BACK NEUROLOGIC: ALERT AND ORIENTED ?3, ACCOUNTING PRACTICE MANAGER IS NORMAL TESTED, NO GROSS MOTOR DEFICIT Course Vital Signs Vital signs: Vital Signs Temperature 36.8 C 10/04/24 17:17 Pulse Rate 75 10/04/24 17:17 Respiratory Rate 20 10/04/24 17:17 Blood Pressure 164/86 H 10/04/24 17:17 Pulse Oximetry 98 10/04/24 17:17 Oxygen Delivery Room Air 10/04/24 17:17 Temperature 36.8 C 10/04/24 17:17 Pulse Rate 75 10/04/24 17:17 Respiratory Rate 20 10/04/24 17:17 Blood Pressure 164/86 H 10/04/24 17:17 Pulse Oximetry 98 10/04/24 17:17 Oxygen Delivery Room Air 10/04/24 17:17 MDM - Nausea/Vomiting/Diarrhea MDM Narrative Medical decision making narrative: PATIENT CAME TO THE ED WITH NAUSEA, VOMITING AND DIARRHEA FOR 1 AND HAVE WEEK. VITAL SIGNS SHOWING BLOOD PRESSURE 164/86 OTHERWISE WITHIN NORMAL LIMIT PHYSICAL EXAMINATION IS UNREMARKABLE DIFFERENTIAL DIAGNOSIS INCLUDE GASTROENTERITIS, DEHYDRATION, ELECTROLYTE IMBALANCE, DEPRESSION, CANNABIS INDUCED HYPER MG. BLOOD WORKUP TODAY INCLUDES CBC, CMP, LIPASE SHOWED insignificant abnormalities URINALYSIS SHOWED insignificant abnormalities Diagnosis gastroenteritis Discharged on Zofran and Imodium The pt was discharged to home.the pt,s condition upon discharge was fair,education was provided to the pt in reference to the final impression,discharge study results,treatment,prognosis and need for follow up . Differential Diagnosis Differential diagnosis: Likely gastroenteritis, drug-induced nausea and vomiting and dehydration Medical Records Attestation: I reviewed the patient's medical records. Lab Data Attestation: I reviewed the patient's lab results. 10/04/24 17:29 10/04/24 17:29 Labs: Lab Results 10/04/24 Range/Units 17:29 WBC 9.7 (4.5-10.0) K/mm3 RBC 4.90 (4.2-5.4) M/mm3 Hgb 14.3 (12.0-15.0) g/dL Hct 43.0 (37.0-47.0) % MCV 87.8 (80-100) fl MCH 29.2 (26-34) pg MCHC 33.3 (32-36) g/dl RDW 13.3 (11.5-14.5) % Plt Count 263 (150-375) k/mm3 MPV 11.4 H (7.4-10.4) fl Immature Gran % (Auto) 0.2 (0-0.5) % Neut % (Auto) 63.2 (45.5-73.1) % Lymph % (Auto) 28.4 (18.3-44.2) % Smith % (Auto) 7.6 (2.6-8.5) % Eos % (Auto) 0.2 (0-4.4) % Baso % (Auto) 0.4 (0.2-1.2) % Lymph # (Auto) 2.76 (0.9-3.2) K/mm3 Smith # (Auto) 0.7 H (0.1-0.6) K/mm3 Eos # (Auto) 0.0 (0-0.3) K/mm3 Baso # (Auto) 0.0 (0.0-0.1) K/mm3 Abs Immat Gran (auto) 0.02 (0.00-0.031) K/mm3 Absolute Neuts (auto) 6.1 (1.3-6.7) K/mm3 Absolute Nucleated RBC 0.000 (0.0-0.012) K/mm3 Nucleated RBC % 0.0 (0.0-0.2) % Sodium 137 (137-145) mmol/L Potassium 3.5 (3.4-5.0) mmol/L Chloride 98 (98-107) mmol/L Carbon Dioxide 29 (22-30) mmol/L Anion Gap 10 (4-12) mmol/L BUN 14 (7-17) mg/dL Creatinine 0.71 (0.7-1.0) mg/dL Estim Creat Clear Calc 70 ml/min Estimated GFR > 60 (59 - ) Glucose 115 H (65-110) mg/dL Calcium 9.6 (8.4-10.2) mg/dL Magnesium 2.0 (1.6-2.3) mg/dL Total Bilirubin 1.1 (0.2-1.3) mg/dL AST 31 (14-36) U/L ALT 30 (6-35) U/L Alkaline Phosphatase 52 (38-126) U/L Total Protein 8.0 (6.3-8.2) g/dL Albumin 5.0 (3.5-5.1) g/dL Lipase 40 (23-300) U/L Urine Color Yellow (Yellow) Urine Appearance Clear (Clear) Urine pH 6.5 (5.0-9.0) Ur Specific Ransom 1.011 (1.001-1.035) Urine Protein Negative (Negative) mg/dL Urine Glucose (UA) Negative (Negative) mg/dL Urine Ketones Trace H (Negative) mg/dL Ur Blood (Man) 1+ H (Negative) Urine Nitrate Negative (Negative) Urine Bilirubin Negative (Negative) Urine Urobilinogen 0.2 (<2.0) mg/dL Leukocyte Esterase Rfl Trace H (Negative) JEZ/UL Urine RBC 6-10 H (0-2) /hpf Urine WBC 0-5 (0-3) /hpf Ur Squamous Epith Cells Occasional (Few) /hpf Urine Bacteria None seen /hpf Urine Casts 0-2 Critical Care Time Critical Care Time Critical Care Time: No Discharge Plan Discharge Clinical Impression: Gastroenteritis Patient Disposition: Home Condition: Stable Instructions: Gastroenteritis (ED) Additional Instructions: Return if symptoms are worsening , call your family physician for appointment, take Tylenol as as needed for aches and pain, continue home medications. Encourage fluid intake Get japd-gta-slyvjxt Imodium Patient Language: Chinese Prescriptions: New ondansetron 4 mg tablet,disintegrating 4 mg PO Q4H 0 Days Qty: 10 0RF Rx Instructions: give 1st dose 30min before emetogenic chemo No Action aspirin [Adult Aspirin Regimen] 81 mg tablet,delayed release (DR/EC) 81 mg PO DAILY Adult 50 Plus Probiotic 4 billion cell capsule 4,000 mmu cells PO DAILY Rx Instructions: administer with a meal pyridoxine (vitamin B6) 10 mg tablet 10 mg PO DAILY eliezer extract 250 mg capsule 250 mg PO DAILY lutein 20 mg capsule 20 mg PO DAILY Rx Instructions: give with meal/snack Biotin Plus Keratin 10,000-100 mcg-mg tablet PO Pickaway Bergamot 500 mg capsule PO multivitamin Tablet 1 tablet PO DAILY bybsjtuo-twmxiebviw-pacf-hops 515 mg capsule PO turmeric 400 mg capsule PO amoxicillin-pot clavulanate 875-125 mg tablet 1 tablet PO BID Qty: 14 0RF methylprednisolone [Medrol (Bryon)] 4 mg tablets,dose pack See Rx Instructions PO PER PKG DIR Qty: 21 0RF Rx Instructions: PO PER PKG DIR hydrochlorothiazide 12.5 mg tablet 25 mg PO DAILY Qty: 180 3RF omeprazole 20 mg capsule,delayed release(DR/EC) See Rx Instructions .ROUTE .COMPLEX Qty: 90 3RF Dose Instruction: TAKE 1 CAPSULE DAILY Rx Instructions: TAKE 1 CAPSULE DAILY rosuvastatin 20 mg tablet See Rx Instructions .ROUTE .COMPLEX Qty: 90 3RF Dose Instruction: TAKE 1 TABLET DAILY Rx Instructions: TAKE 1 TABLET DAILY meloxicam 15 mg tablet See Rx Instructions .ROUTE .COMPLEX Qty: 90 3RF Dose Instruction: TAKE 1 TABLET DAILY Rx Instructions: TAKE 1 TABLET DAILY citalopram 20 mg tablet See Rx Instructions .ROUTE .COMPLEX Qty: 90 1RF Dose Instruction: TAKE 1 TABLET DAILY Rx Instructions: TAKE 1 TABLET DAILY alprazolam 0.25 mg tablet 0.25 mg PO DAILY PRN (Reason: anxiety) Qty: 10 0RF cyclobenzaprine 10 mg tablet See Rx Instructions .ROUTE BID PRN (Reason: muscle spasm) Qty: 180 0RF Dose Instruction: TAKE 1 TABLET THREE TIMES A DAY Rx Instructions: BID PRN MUSCLE SPASM trazodone 100 mg tablet 100 mg PO QHS PRN (Reason: insomnia) Qty: 90 0RF valsartan 160 mg tablet 160 mg PO DAILY Qty: 90 1RF Follow-up/Referrals: Karrie Loza DO [Primary Care Provider] -
[2024-10-04 17:38] LABS: Basophils Percent Auto 0.4 % (0.2-1.2); Eosinophils Percent Auto 0.2 % (0-4.4); Hemoglobin 14.3 g/dL (12.0-15.0); Immature Granulocyte Absolute 0.02 K/mm3 (0.00-0.031); Immature Granulocyte Percent A 0.2 % (0-0.5); Lymphocytes Absolute Auto 2.76 K/mm3 (0.9-3.2); Lymphocytes Percent Auto 28.4 % (18.3-44.2); Mean Corpuscular HGB Conc 33.3 g/dl (32-36); Mean Corpuscular Hemoglobin 29.2 pg (26-34); Mean Corpuscular Volume 87.8 fl (80-100); Mean Platelet Volume 11.4 fl (7.4-10.4); Monocytes Absolute Auto 0.7 K/mm3 (0.1-0.6); Monocytes Percent Auto 7.6 % (2.6-8.5); Neutrophils Absolute Auto 6.1 K/mm3 (1.3-6.7); Neutrophils Percent Auto 63.2 % (45.5-73.1); Platelet Count Result 263 k/mm3 (150-375); Red Cell Distribution Width 13.3 % (11.5-14.5); White Blood Count 9.7 K/mm3 (4.5-10.0)
[2024-10-04 17:45] LABS: Add Urine Microscopic? YES; Appearance Urine Clear (Clear); Bacteria Urine None Seen /hpf; Bilirubin Urine Negative (Negative); Blood Urine 1+ (Negative); Color Urine Yellow (Yellow); Glucose Urine UA Negative (Negative); Ketones Urine Trace mg/dL (Negative); Leukocyte Esterase Ur Trace LEU/UL (Negative); Nitrate Urine Negative (Negative); Non Pathogenic Casts 0-2; Protein Urine Negative (Negative); Specific Grav Ur 1.011 (1.001-1.035); Squamous Epithelial Cell Urine Occasional /hpf (Few); Urobilinogen Urine 0.2 mg/dL (<2.0); WBC Urine 0-5 /hpf (0-3); pH Urine 6.5 (5.0-9.0)
[2024-10-04 17:48] LABS: Alanine Aminotransferase 30 U/L (6-35); Alkaline Phosphatase 52 U/L (38-126); Anion Gap 10 mmol/L (4-12); Aspartate Amino Transferase 31 U/L (14-36); Bilirubin,Total 1.1 mg/dL (0.2-1.3); Blood Urea Nitrogen 14 mg/dL (7-17); Calcium 9.6 mg/dL (8.4-10.2); Carbon Dioxide 29 mmol/L (22-30); Chloride 98 mmol/L (98-107); Estimated CRCL calculation 70 ml/min; Estimated Glomerular Filt Rate > 60; Glucose 115 mg/dL (65-110); Lipase 40 U/L (23-300); Potassium 3.5 mmol/L (3.4-5.0); Sodium 137 mmol/L (137-145)
--- OUTSIDE RECORDS SUMMARY | 2024-10-04 18:17 | XMS_ITS | Clinical Summary ---
Author Organization [facility] Address [address] [facility], [facility] [address] [place] [address] Phone Care Team Providers Care Electroless Plater Name Role Phone Mark Diehl MD Primary Care Provider [phone] Allergies Active Allergy Reactions Criticality Noted Date [...] age to complete this topic Insurance MEDICAID [place] Care Teams Electroless Plater Relationship Specialty Start Date End Date Mark Diehl MD [address] [facility] [facility] [address] [place] [address] PCP - General Family Medicine 02/10/18
--- OUTSIDE RECORDS SUMMARY | 2024-10-04 18:17 | XMS_ITS | Clinical Summary ---
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 Hip Components Right: Hip DEPUY [id number] 12/31/2032 [id number] / / [id number] Liner Depuy Acetabular Altrx Neut 36x56 - [id number] Implanted:Qty : 1 on 09/03/2023 by Davion Chin MD at [facility] Hip Components Right: Hip DEPUY [id number] 05/02/2028 [id number] / / [id number] Stem Femoral Collar Actis Duofix 5 Standard Offset Hip Sterile - [id number] Implanted:Qty : 1 on 09/03/2023 by Davion Chin MD at [facility] Hip Components Right: Hip DEPUY [id number] 07/03/2033 [id number] / / [id number] Head Depuy Femoral Delta 36mm +5 - [id number] Implanted:Qty : 1 on 09/03/2023 by Davion Chin MD at [facility] Hip Components Right: Hip DEPUY [id number] 09/30/2026 [id number] / / [id number] Screw Depuy Cancellous Bone 6.5mm X 25mm - [id number] Implanted:Qty : 1 on 09/03/2023 by Davion Chin MD at [facility] Screw Right: Hip DEPUY [id number] 03/02/2033 [id number] / / [id number] Screw [place] Depuy 6.5 X 20mm - [id number] Implanted:Qty : 1 on 09/03/2023 by Davion Chin MD at [facility] Screw Right: Hip DEPUY [id number] 03/02/2033 [id number] / / [id number] Insurance Advance Directives * Full Code (Latest Code Status on File) Date Activated Date Inactivated Comments 10/02/2023 10:27 AM * Full Code Date Activated Date Inactivated Comments 09/03/2023 11:31 AM 09/04/2023 2:12 PM Care Teams Chip Person Relationship Specialty Start Date End Date Rogelio Dugan MD [address] [address] PCP - General FAMILY PRACTICE 06/04/23
[2024-10-04] MEDS: SODIUM CHLORIDE 0.9% IV 1,000 ML 999 ML IV CONT (18:31)
[2024-10-04 18:36] VITALS: BP 144/83; PULSE 67; RESP 19; O2SAT 96
[2024-10-04 19:18] LABS: Influenza A QL RT-PCR Negative (Negative); Influenza B QL RT-PCR Negative (Negative); RSV RNA, RT-PCR Negative (Negative); SARS-CoV-2 RNA PCR Negative (Negative)
== END 2024-10-04 18:56 | disposition home or self-care (01) ==
PROVIDERS: Physician Assistant; Emergency Provider Emergency Medicine; PCP Family Medicine
DX: K52.9 Noninfective gastroenteritis and colitis, unspecified (principal); F17.210 Nicotine dependence, cigarettes, uncomplicated; F12.90 Cannabis use, unspecified, uncomplicated; I10 Essential (primary) hypertension; E78.2 Mixed hyperlipidemia; K21.9 Gastro-esophageal reflux disease without esophagitis; N80.9 Endometriosis, unspecified; M16.11 Unilateral primary osteoarthritis, right hip; F32.A Depression, unspecified; Z79.82 Long term (current) use of aspirin
CPT/HCPCS: 36415; 80053; 81001; 83690; 83735; 85025; 87637; 96360; 99283; J7030

== ENCOUNTER 2024-11-03 14:26 | Outpatient (CLI) | payer MEDICARE, OTHER, MEDICAID, SELFPAY ==
--- NOTE | ~2024-11-03 | MM_ITS ---
EXAMINATION: MM screening corin BI w liza HISTORY: Screening mammogram TECHNIQUE: Craniocaudal and mediolateral oblique 3-D tomosynthesis images were obtained and synthetic 2-D images were generated. CAD analysis was submitted and interpreted. COMPARISON: 08/05/2023 through 07/04/2017 BREAST PARENCHYMAL COMPOSITION: The breasts are almost entirely fatty. FINDINGS: There is no evidence of suspicious mass, calcification, or architectural distortion to sug gest malignancy in either breast. There has been no suspicious interval change. IMPRESSION: 1. No mammographic evidence of malignancy. 2. Recommend routine screening mammography in one year. BI-RADS Category 1: Negative Reviewed, dictated and finalized at location B.
--- OUTSIDE RECORDS SUMMARY | 2024-11-03 14:32 | XMS_ITS | Clinical Summary ---
Author Organization [facility] Address [address] [facility], [facility] [address] [place] [address] Phone Care Team Providers Care Lead Software Engineer Name Role Phone Mark Diehl MD Primary Care Provider [phone] Allergies Active Allergy Reactions Criticality Noted Date [...] 10:54 AM CDT Height 172.7 cm (5' 8) 10/08/2018 10:54 AM CDT Body Mass Index [...] age to complete this topic Insurance MEDICAID [place] Care Teams Lead Software Engineer Relationship Specialty Start Date End Date Mark Diehl MD [address] [facility] [address] [place] [address] PCP - General Family Medicine 02/10/18
== END 2024-11-03 14:27 | disposition home or self-care (01) ==
PROVIDERS: PCP Family Medicine; Visit Provider Family Medicine
DX: Z12.31 Encounter for screening mammogram for malignant neoplasm of breast (principal)
CPT/HCPCS: 77063; 77067

== ENCOUNTER 2024-11-25 12:50 | Outpatient (CLI) | payer MEDICARE, OTHER, SELFPAY ==
--- NOTE | ~2024-11-25 | US_ITS ---
EXAMINATION: US carotid duplex BI DATE: 11/25/2024 17:47 CDT INDICATION: Occlusion and stenosis of unspecified artery TECHNIQUE: Grayscale, color Doppler, and pulsed Doppler images of the cervical carotid arteries were obtained. The degree of vessel stenosis is placed in one of the following categories: normal, <50%, 50-69%, >=7 0% but less than near-occlusion, near-occlusion, or total occlusion. Note that percent stenosis relative to normal distal artery lumen diameter is indirectly measured fro m velocity measurements as described originally by Jorge, et al. Radiology 2003; 229:340-346 and upda izaiah by norma Contreras al STROKE 2012;43(3);915-921. COMPARISON: 10/02/2023 FINDINGS: There is mild atherosclerosis of both carotid arteries. Peak systolic velocity (in cm/s) is detailed below RIGHT: Right common carotid artery (CCA): 60 cm/s. Right internal carotid artery (ICA) PSV: 73 cm/s. Right ICA end-diastolic velocity (EDV): 39 cm/s. Right ICA/CCA PSV ratio is 1.2. Right external carotid artery (ECA): 72cm/s. There is antegrade flow in the right vertebral artery LEFT: Left common carotid artery (CCA): 58 cm/s. Left internal carotid artery (ICA) PSV: 89 cm/s. Left ICA end-diastolic velocity (EDV): 44 cm/s. Left ICA/CCA PSV ratio is 1.5. Left external carotid artery (ECA): 83cm/s. There is antegrade flow in the left vertebral artery. IMPRESSION: 1. Less than 50% stenosis in the right internal carotid artery. 2. Less than 50% stenosis in the left internal carotid artery. Reviewed, dictated and finalized at location A.
== END 2024-11-25 12:51 | disposition home or self-care (01) ==
PROVIDERS: PCP Family Medicine; Visit Provider Internal Medicine Cardiovascular Disease
DX: I65.29 Occlusion and stenosis of unspecified carotid artery (principal)
CPT/HCPCS: 93880